=== PATIENT | male | born 1990 | race American Indian/Alaskan Native ===

== ENCOUNTER 2018-01-23 18:51 | Emergency (ER) | payer SELFPAY ==
[2018-01-23 18:59] VITALS: BP 102/50
--- NOTE | 2018-01-23 21:22 | Emergency Department Report ---
Chief Complaint: Urogenital-Male Stated Complaint: BACK PAIN, BLOOD IN URINE AND PELVIC PAIN Time Seen by Provider: 01/23/18 21:20 - HPI History of Present Illness: 27-year-old -[place] male comes to the emergency room complaining of intermittent lower back pain. Patient reports he doesn't have back pain at this moment. Patient reports that he wants to be checked for STDs. Patient reports that his urine is green. Patient denies any fever chills or nausea no vomiting abdominal pain. - Exam Vital Signs: Vital Signs 01/23/18 18:55 Temperature 98.5 F Pulse Rate 70 Respiratory 16 Rate Blood Pressure 102/50 O2 Sat by Pulse 98 Oximetry Physical Exam: Patient alert and oriented 3 no acute distress. Afebrile vital signs are stable and within normal limits. MSE screening note: Focused history and physical exam performed. Due to findings the following was ordered: Discussed patient he should follow-up with the health department of [facility]. Patient verbalizes understanding ED Disposition for MSE Condition: Stable Referrals: PRIMARY CARE, [Primary Care Provider] - 3-5 Days
== END 2018-01-23 21:20 | disposition left against medical advice (07) ==
LOC: ED 18:51
DX: M54.5 Low back pain (principal)
CPT/HCPCS: 99281